=== PATIENT | male | born 1995 | race Caucasian/White ===

== ENCOUNTER 2019-04-03 16:41 | Outpatient (CLI) | payer BC ==
[2019-04-03 16:48] LABS: #Basophils 0.1 thou/uL (0.0-0.2); #Eosinphils 0.1 thou/uL (0.0-0.7); #Lymphocytes 3.2 thou/uL (1.20-3.40); #Monocytes 0.9 thou/uL (0.11-0.59); #Neutrophils 6.1 thou/uL (1.40-6.50); %Basophils 0.8 % (0.0-1.0); %Eosinophils 1.1 % (0.0-10.0); %Lymphocytes 30.6 % (21.0-51.0); %Monocytes 8.9 % (0.0-10.0); %Neutrophils 58.6 % (42.0-75.0); Hemoglobin 15.2 g/dL (14.0-18.0); Mean Corpuscular HGB CONC 33.6 g/dL (32.0-36.0); Mean Corpuscular Hemoglobin 28.7 pg (27.0-31.0); Mean Corpuscular Volume 85.4 fL (78.0-98.0); Mean Platelet Volume 8.2 fL (7.4-10.4); Platelet Count 249 thou/uL (130-400); RBC Distribution Width 11.7 % (11.5-14.5); Red Blood Cell (RBC) Count 5.29 mill/uL (4.70-6.10); White Blood Cell (WBC) Count 10.4 thou/uL (4.8-10.8)
== END 2019-04-03 16:42 | disposition home or self-care (01) ==
LOC: LABBT 16:41
PROVIDERS: ATTEND Orthopaedic Surgery Hand Surgery
DX: Z01.812 Encounter for preprocedural laboratory examination (principal); S62.101A Fracture of unspecified carpal bone, right wrist, initial encounter for closed fracture
CPT/HCPCS: 85025

== ENCOUNTER 2019-04-06 14:57 | Observation (INO) | payer BC ==
[2019-04-03 16:51] VITALS: BMI 33.2
[2019-04-06] MEDS ORDERED: PROPOFOL 200 MG/20 ML VIAL ONE (15:39)
[2019-04-06] MEDS ORDERED: Ondansetron PF 4 MG/2 ML Vial ONE (15:39)
[2019-04-06] MEDS ORDERED: Ketorolac Tromethamine 30 MG/ML VIAL ONE (15:39)
[2019-04-06] MEDS ORDERED: Lidocaine 1% PF 5 ML VIAL ONE (15:39)
[2019-04-06] MEDS ORDERED: Glycopyrrolate 0.2 MG/ML 5 ML SYRINGE ONE (15:39)
[2019-04-06] MEDS ORDERED: PHENYLEPHRINE-NS 100 MCG/ML 10 ML SYRINGE ONE (15:39)
[2019-04-06] MEDS ORDERED: Dexamethasone 20 MG/5 ML VIAL ONE (15:39)
[2019-04-06] MEDS ORDERED: ePHEDrine 50 MG/ML VIAL ONE (15:39)
[2019-04-06] MEDS ORDERED: Bacitracin Zinc Ointment 30 gm TUBE ONE (15:56)
[2019-04-06] MEDS ORDERED: Bupivacaine PF 0.5% 30 ML VIAL ONE (15:56)
[2019-04-06 15:59] LABS: #Basophils 0.1 thou/uL (0.0-0.2); #Eosinphils 0.3 thou/uL (0.0-0.7); #Lymphocytes 2.2 thou/uL (1.20-3.40); #Monocytes 0.8 thou/uL (0.11-0.59); #Neutrophils 8.7 thou/uL (1.40-6.50); %Basophils 0.4 % (0.0-1.0); %Eosinophils 2.3 % (0.0-10.0); %Lymphocytes 18.2 % (21.0-51.0); %Neutrophils 72.1 % (42.0-75.0); Hemoglobin 16.4 g/dL (14.0-18.0); Mean Corpuscular HGB CONC 34.2 g/dL (32.0-36.0); Mean Corpuscular Volume 84.8 fL (78.0-98.0); Mean Platelet Volume 8.3 fL (7.4-10.4); Platelet Count 249 thou/uL (130-400); RBC Distribution Width 11.7 % (11.5-14.5); Red Blood Cell (RBC) Count 5.64 mill/uL (4.70-6.10)
[2019-04-06] MEDS ORDERED: Sodium Chloride 0.9% 10 ML ONE (16:06)
[2019-04-06] MEDS ORDERED: Fentanyl 100 MCG/2 ML VIAL ONE ×2 (16:26→21:02)
[2019-04-06] MEDS ORDERED: HYDROmorphone 2 MG/ML VIAL ONE (18:55)
--- NOTE | 2019-04-06 19:53 | RAD ---
3 fluoroscopic spot images of the right wrist INDICATION: Open reduction internal fixation COMPARISON: Prior wrist radiograph dated March 28, 2019 FINDINGS: There is been interval open reduction internal fixation of the intra-articular distal radiu s and ulnar styloid process fractures. There is metallic density overlying the soft tissues of the right wrist appears in different positioning depending on projection is likely external to the patien t and artifact. The total fluoroscopic time was 79.5 seconds with a total exposure of 2.21 mGy. IMPRESSION: ORIF of distal radius and ulnar fractures.
[2019-04-06] MEDS ORDERED: Milk Of Magnesia 30 ML UDCUP PO PRN (20:00)
[2019-04-06] MEDS ORDERED: Acetaminophen 325 MG TAB PO PRN (20:00)
[2019-04-06] MEDS ORDERED: Bisacodyl 10 MG SUPP PR PRN (20:00)
[2019-04-06] MEDS ORDERED: Fentanyl 100 MCG/2 ML VIAL SLOW IVP PRN (20:00)
[2019-04-06] MEDS ORDERED: Ondansetron PF 4 MG/2 ML Vial IV PRN (20:00)
[2019-04-06] MEDS ORDERED: Promethazine HCl 25 MG/ML VIAL IM PRN (20:00)
[2019-04-06] MEDS ORDERED: HYDROcodone/Acetaminophen 5/325 mg Tablet ONE (20:27)
[2019-04-06] MEDS ORDERED: Meperidine HCl/PF 25 MG/ML VIAL IM PRN (20:34)
[2019-04-06] MEDS ORDERED: Vancomycin HCl 1 GM in Premix Bag 1 BAG IVPB SCH (21:00)
[2019-04-06] MEDS: Aspirin 81 mg Enteric Coated Tablet PO SCH (22:00)
[2019-04-06] MEDS ORDERED: Morphine 4 MG/ML VIAL ONE (22:30)
[2019-04-06] MEDS: Ketorolac Tromethamine 30 MG/ML VIAL IVP SCH (23:23)
[2019-04-06] MEDS: Vancomycin HCl 1.75 GM in Sodium Chloride 0.9% 500 ML IVPB SCH (23:23)
[2019-04-06] MEDS ORDERED: FLU VACC QS2019-20(6MOS UP)/PF 60 MCG/0.5 ML SYRINGE IM ONE (23:45)
[2019-04-06] MEDS: HYDROcodone/Acetaminophen 5/325 mg Tablet PO PRN (23:55)
[2019-04-07] MEDS: Morphine 4 MG/ML VIAL SLOW IVP PRN ×5 (01:26→18:09)
--- NOTE | 2019-04-07 02:43 | OP ---
DATE OF PROCEDURE: 04/06/2019 PREOPERATIVE DIAGNOSES: Displaced left distal radius fracture, two-part, medial complex Melone, ulnar styloid fracture 100% displaced radially with type 3 triangular fibrocartilage complex attached to the base of the fragment. PROCEDURES PERFORMED: 1. Open reduction and internal fixation of distal radius fracture with Synthes periarticular distal volar hook plate. 2. Bone graft approximately 5 mL of cancellous cubes. 3. Open reduction and internal fixation of ulnar type 3 fracture with combination of tension band technique and the distal ulnar styloid hook plate in compression mode. COMPLICATIONS: None. TOURNIQUET TIME: 112 minutes. FINDINGS: 1. A 3 mm medial complex depression brought into anatomic position throughout the joint level. 2. 100% displaced ulnar styloid fracture brought back to within 1 mm of anatomic position on the most ulnar cortex. DESCRIPTION OF PROCEDURE: After successful general endotracheal anesthesia, the limb was prepped and draped. Time-out done appropriately. The C-arm brought to the field, identified the depressed medial complex and then made a standard incision of distal radius fracture through skin and subcutaneous tissue into the flexor carpi radialis sheath, and then into the interval between the FCR and radial artery, opening the bed with sharp knife. We opened the pronator quadratus with one area still attached ulnarly. We then visualized the fragment. The fragment extended all the way over to the styloid portion, was depressed in dorsal and volar half. The volar half was more depressed than the dorsal half making this at least a two-part fracture. We then elevated the fragment till it was anatomic, held it with a combination of gill elevator and freer elevator and placed cancellous chip bone graft until we had enough to hold it in place and then we K-wired the construct. Once we K-wired the construct, we then made sure the nerve, pronator quadratus and tendons were all the way and employed a periarticular volar Synthes hook plate all the way up to the edge of the articular surface and only approximately 1 mm away from the volar rim distally. We then secured this with a standard drill measure and screw technique using cortical screws given the patient is in his 3rd decade of life. We felt that this was nearly anatomic, augmented some bone graft around the more proximal end of the fragment after the plate was placed, closed the pronator quadratus and packed this with a moist normal saline soaked Ray-Jero. We now turned to the distal ulnar. We made a zigzag incision of distal ulnar, where the point of the ulnar tip itself went dorsal and visualized and protected the superficial ulnar nerve branches. We carried this incision with a [place] blade through the fascia down to the periosteum. We removed the periosteum back with an elevator and visualized the fragment, had achieved approximately 5 mm from the ulnar wall and visualized completely. There was a marked amount of tension even with loosening the tissue. TFCC was completely attached as it had been displaced long enough, that we could only achieve a 1 mm displaced position on the most ulnar wall, but we had achieved contact of over 85%. With this in mind, we used 3.5 K-wires, #1 Ethibond, OS4 needle in a tension band mode with a drill through the ulna of 5 cm proximal to the fracture and held it in position and then placed a hook plate. After tied it to further compress and placed this in compression mode with 2 screws in the most proximal 2/3 slots. There was stable to rotation. No clicking. No evidence of displacement of fracture fragments and we then released the tourniquet. The wires were cut and bent appropriately in tension band technique. We closed the fascia with a #0 Vicryl running on the ulnar aspect and obtained hemostasis and closed the dermis with a subcutaneous 4-0 Monocryl running and epidermis with interrupted 4-0 nylon mattress pattern. We then checked the volar aspects, all hemostasis, cauterized a few muscular bleeders and then irrigated. We then visualized the median nerve, it was intact without compression. We then closed the subcutaneous deep dermis with a running 3-0 Monocryl, epidermal closure with 4-0 nylon in a mattress pattern and then gave the remaining 10 mL of the 0.5% Marcaine. The patient went to the operating room in a [facility] splint without evidence of vascular or neurological complication. Job ID: [id number]
[2019-04-07] MEDS: Ketorolac Tromethamine 30 MG/ML VIAL IVP SCH ×4 (05:01→23:54)
[2019-04-07] MEDS: HYDROcodone/Acetaminophen 5/325 mg Tablet PO PRN ×4 (07:55→23:54)
[2019-04-07] MEDS: Aspirin 81 mg Enteric Coated Tablet PO SCH ×2 (07:57→21:00)
[2019-04-07] MEDS ORDERED: TETANUS AND DIPHTHERIA TOX/PF 0.5 ML DISP.SYRIN IM SCH (09:00)
[2019-04-07] MEDS: Vancomycin HCl 1.75 GM in Sodium Chloride 0.9% 500 ML IVPB SCH ×2 (09:05→17:21)
[2019-04-07] MEDS: traMADol HCl 50 MG TAB PO PRN ×2 (09:09→15:11)
[2019-04-07 15:22] LABS: Vancomycin, Trough 13.2 ug/mL
[2019-04-07] MEDS ORDERED: Ketorolac Tromethamine 30 MG/ML VIAL IVP SCH (18:30)
[2019-04-07 18:40] LABS: #Eosinphils 0.1 thou/uL (0.0-0.7); #Lymphocytes 2.7 thou/uL (1.20-3.40); #Monocytes 1.4 thou/uL (0.11-0.59); #Neutrophils 9.5 thou/uL (1.40-6.50); %Basophils 0.2 % (0.0-1.0); %Eosinophils 0.6 % (0.0-10.0); %Lymphocytes 19.9 % (21.0-51.0); %Monocytes 10.4 % (0.0-10.0); %Neutrophils 68.9 % (42.0-75.0); Hemoglobin 14.5 g/dL (14.0-18.0); Mean Corpuscular HGB CONC 35.5 g/dL (32.0-36.0); Mean Corpuscular Hemoglobin 29.9 pg (27.0-31.0); Mean Corpuscular Volume 84.4 fL (78.0-98.0); Platelet Count 222 thou/uL (130-400); RBC Distribution Width 11.6 % (11.5-14.5); Red Blood Cell (RBC) Count 4.84 mill/uL (4.70-6.10); White Blood Cell (WBC) Count 13.7 thou/uL (4.8-10.8)
[2019-04-07 18:59] LABS: Anion Gap 12 mmol/L (10-20); BUN (Urea Nitrogen) 12 mg/dL (8.9-20.6); Calc. Creatinine Clearance 226 mL/min (70-130); Calcium 8.6 mg/dL (7.8-10.44); Carbon Dioxide 25 mmol/L (22-29); Chloride 104 mmol/L (98-107); Estimated GFR-MDRD Greater than 90; Glucose 99 mg/dL (70-105); Potassium 3.8 mmol/L (3.5-5.1); Sodium 137 mmol/L (136-145)
[2019-04-08] MEDS: Ketorolac Tromethamine 30 MG/ML VIAL IVP SCH ×2 (05:28→12:30)
[2019-04-08] MEDS: HYDROcodone/Acetaminophen 5/325 mg Tablet PO PRN ×3 (05:28→14:51)
[2019-04-08] MEDS: Vancomycin HCl 1.75 GM in Sodium Chloride 0.9% 500 ML IVPB SCH ×2 (09:41)
[2019-04-08] MEDS: Aspirin 81 mg Enteric Coated Tablet PO SCH (10:30)
[2019-04-08 15:44] VITALS: BP 161/95; TEMP 98.5
--- NOTE | 2019-04-08 19:10 | DIS ---
DATE OF ADMISSION: 04/06/2019 DATE OF DISCHARGE: 04/08/2019 ADMISSION DIAGNOSES: 1. Markedly displaced type 3 ulnar styloid fracture. 2. Markedly displaced with shortening and comminution, Melone medial complex in 3-part fracture of the radius. HOSPITAL PROCEDURES: 1. Open reduction and internal fixation with cancellous bone chip grafting of the radius Melone medial complex, split into anterior, dorsal, and palmar quadratus, making a 3-part fracture. 2. Distal ulnar styloid fracture, 100% displaced. HOSPITAL COURSE: The patient was admitted and had the elective operation performed without a block. He had marked pain and indeed had a 2-week old fracture that even before surgery. He was with at home with three 7.5 [place] tablets every 6 hours and Toradol for at least 3 days. He reported that after the surgery, including the ulnar incision, initially had marked pain in the wrist of a throbbing nature without numbness or tingling and without color changes, so therefore, the night after surgery, I loosened his dressing on the 08 of March, because he was suffering from dressing related constriction. He never had stretch pain, never had numbness, never had sensory deficit, and therefore, I did not feel it was a compartment syndrome, but he was edematous. The next day, date of discharge on the 12 of March, he had no question of any type of referred pain from the exam and had no situational weakness. He was prepared for discharge when the pills controlled his pain. DISCHARGE DIAGNOSES: 1. Markedly displaced type 3 ulnar styloid fracture. 2. Markedly displaced with shortening and comminution, Melone medial complex in 3-part fracture of the radius. DISPOSITION: The patient will have regular diet. Wear a sling when not in the bed for the next week. Follow up with us in the office in 6 days for dressing change, and we will give for pain, Percocet 10 mg one every 8 hours and then the patient will also take Demerol for breakthrough and then Bactrim prophylactic antibiotics. Again he will wear sling and keep it elevated and follow up with us as listed. Job ID: [id number]
== END 2019-04-08 17:05 | disposition home or self-care (01) ==
LOC: SDC 14:57 → SURG A 20:00
PROVIDERS: ADMIT Orthopaedic Surgery Hand Surgery; ATTEND Orthopaedic Surgery Hand Surgery
PROC: 0PSH04Z Reposition Right Radius with Internal Fixation Device, Open Approach (ICD-10-PCS; principal; 2019-04-06)
PROC: 0PSK04Z Reposition Right Ulna with Internal Fixation Device, Open Approach (ICD-10-PCS; 2019-04-06)
PROC: 0PUH0KZ Supplement Right Radius with Nonautologous Tissue Substitute, Open Approach (ICD-10-PCS; 2019-04-06)
DX: S52.571A Other intraarticular fracture of lower end of right radius, initial encounter for closed fracture (principal); S52.611A Displaced fracture of right ulna styloid process, initial encounter for closed fracture; F90.9 Attention-deficit hyperactivity disorder, unspecified type; I10 Essential (primary) hypertension; Z79.899 Other long term (current) drug therapy; W21.89XA Striking against or struck by other sports equipment, initial encounter
CPT/HCPCS: 36415; 76000; 80048; 80202; 85025; 96365; 96366; 96375; 96376; C1713; G0378; J0690; J1100; J1170; J1885; J2001; J2270; J2405; J2704; J3010; J3370; J3490; J7050; S0020

== ENCOUNTER 2024-03-07 14:09 | Emergency (ER) | payer SELFPAY ==
[2024-03-07] MEDS ORDERED: Diazepam 5 MG TAB ONE (14:36)
[2024-03-07] MEDS ORDERED: Dexamethasone 4 MG TAB ONE (14:36)
[2024-03-07] MEDS ORDERED: Ketorolac Tromethamine 30 MG (1 mL) VIAL ONE (14:37)
== END 2024-03-07 15:00 | disposition home or self-care (01) ==
LOC: ERS 14:09
DX: S39.012A Strain of muscle, fascia and tendon of lower back, initial encounter (principal); W22.8XXA Striking against or struck by other objects, initial encounter; Y93.6A Activity, physical games generally associated with school recess, summer camp and children
CPT/HCPCS: 96372; 99283; J1885; J8540